=== PATIENT | male | born 2000 | race Caucasian/White ===

== ENCOUNTER 2022-07-30 07:14 | Emergency (ER) | payer OTHER, SELFPAY ==
[2022-07-30 07:45] VITALS: BP 116/73; PULSE 116; RESP 16; TEMP 36.9; O2SAT 98; BMI 23.0
--- NOTE | 2022-07-30 07:53 | XR_ITS ---
WS: [id number] Exam: XR finger RT min 2V [id number] Date/Time of Exam: 07/30/2022 8:00 AM Reason For Exam: trauma The index finger is targeted for radiographic evaluation. No fracture or dislocation noted. Unremarkable soft tissues. XR/XR finger RT min 2V [id number] IMPRESSION: 1. Normal right index finger.
--- NOTE | 2022-07-30 07:53 | W.ED.UPPEXIN ---
HPI - Extremity Injury (Upper) General: Chief Complaint: Extremity Injury, Upper Stated Complaint: right hand injury Time Seen by Provider: 07/30/22 07:16 Source: patient Mode of arrival: ambulatory Limitations: no limitations History of Present Illness: Patient is a 21-year-old male who presents to ED today for evaluation of a right index finger injury that he sustained yesterday after smashing it. He denies any lacerations/breaks in the skin or nail damage. Tetanus JESSICAD. complaint: injury to: right and finger Onset (ago): day(s) (yesterday) Other injuries: none Handedness: right Place: work Severity: mild Relieving factors: none Exacerbating factors: none Context: crush Associated symptoms: Reports no associated symptoms Review of Systems Musc: Reports: extremity pain (R index finger pain); Denies: extremity swelling, joint pain or joint swelling Neuro: Denies: numbness in extremities or sensory changes Physical Exam Const: COMMON NORMALS: no acute distress, patient oriented x3, no limitations, alert and well nourished Extremity: COMMON NORMALS: normal to inspection, full ROM and capillary refill normal GENERAL: Yes normal exam except as noted RIGHT UPPER EXTREMITY: Yes hand & digits OTHER: mild tenderness/swelling noted to distal phalanx of R index finger; no abrasions/lacerations/avulsions/amputations/nail damage noted; NV intact Neuro: COMMON NORMALS: patient oriented x3 SENSORIUM/ORIENTATION: Yes alert Course Vital Signs: Vital signs: Vital Signs Temperature 98.4 F 07/30/22 07:45 Pulse Rate 116 H 07/30/22 07:45 Respiratory Rate 16 07/30/22 07:45 Blood Pressure 116/73 07/30/22 07:45 Pulse Oximetry 98 07/30/22 07:45 Oxygen Delivery Me thod 07/30/22 07:45 MDM - Extremity Injury (Upper) Medical Decision Making XR negative. Conservative treatment discussed. Discharge Plan Discharge Patient Disposition: Home Clinical Impression: Crushing injury of right index finger Qualifiers: Encounter type: initial encounter Qualified Code(s): S67.190A - Crushing injury of right index finger, initial encounter Condition: Stable Discharge Orders: Discharge ED (Routine); Ordered 07/30/22 Ordered By: Heavenly Tang Coding Level of Care Code ED [employer] Counselor for Levi Norton
[2022-07-30 08:18] VITALS: BP 116/73; PULSE 116; RESP 16; TEMP 36.9; O2SAT 98
== END 2022-07-30 08:20 | disposition home or self-care (01) ==
PROVIDERS: Emergency Provider Physician Assistant
DX: S67.190A Crushing injury of right index finger, initial encounter (principal); X58.XXXA Exposure to other specified factors, initial encounter
CPT/HCPCS: 73140; 99283